=== PATIENT | male | born 1975 | race Caucasian/White ===

== ENCOUNTER → 2018-10-26 | Outpatient (CLI) | payer BC ==
--- NOTE | 2018-10-26 10:31 | CT ---
EXAMINATION TYPE: CT sinus wo con DATE OF EXAM: 10/26/2018 COMPARISON: None HISTORY: Chronic sinusitis CT DLP: 655 mGycm CONTRAST: None The paranasal sinuses are examined in the axial plane at 2 mm thick sections. Reconstructed images i n the coronal plane were obtained. Findings: There is a retention cyst within the inferior posterior right maxillary sinus. Partial septations in the posterior left maxillary sinus. The ethmoid air cells are clear. The sphenoid sinuses are clear . The frontal sinuses are clear. The septum is evaluated. There is septal deviation to the left. The ostiomeatal units are patent. Portion of the mastoid air cells included within the [id number] are clear. IMPRESSIONS: 1. Small retention cyst right maxillary sinus.
[2018-10-26 19:21] LABS: Codfish IgE <0.10 kU/L; Egg White IgE <0.10 kU/L
[2018-10-26 19:23] LABS: Clam IgE <0.10 kU/L; Peanut IgE <0.10 kU/L; Shrimp IgE <0.10 kU/L; Soybean IgE <0.10 kU/L
[2018-10-26 19:24] LABS: Scallop IgE <0.10 kU/L; Walnut IgE (Food) <0.10 kU/L
[2018-10-26 19:26] LABS: Cat Epith & Dander IgE <0.10 kU/L; Dermato. farinae IgE <0.10 kU/L; Dog Dander IgE <0.10 kU/L
[2018-10-26 19:28] LABS: Alternaria alternata IgE <0.10 kU/L; Cockroach IgE <0.10 kU/L; Maple (Box Elder) IgE <0.10 kU/L
[2018-10-26 19:30] LABS: Birch IgE 0.25 kU/L; Elm IgE <0.10 kU/L; Oak IgE <0.10 kU/L; Ragweed,Common IgE <0.10 kU/L
[2018-10-26 19:32] LABS: Red Top (Bentgrass) IgE <0.10 kU/L
== END | disposition home or self-care (01) ==
LOC: RADCTMAIN 07:27
PROVIDERS: ATTEND Internal Medicine Critical Care Medicine
DX: J32.0 Chronic maxillary sinusitis (principal); J34.1 Cyst and mucocele of nose and nasal sinus; J45.909 Unspecified asthma, uncomplicated; R05 Cough
CPT/HCPCS: 70486; 82785; 86003

== ENCOUNTER 2018-12-06 09:44 | Day surgery (SDC) | payer BC ==
[2018-12-01 15:51] VITALS: BMI 28.7
[~2018-12-06 09:44] MED LIST: LACTATED RINGERS 1,000 ML IV SCH
[2018-12-06 10:25] VITALS: RESP 18; TEMP 98
[2018-12-06] MEDS ORDERED: LIDOCAINE 1% 20 ML VIAL (10MG/ML) FOR IV START INTRADERMA ONE (10:38)
[2018-12-06] MEDS ORDERED: ALBUTEROL NEB (CONC) 2.5 MG/0.5 ML INHALATION ONE (10:39)
[2018-12-06] MEDS ORDERED: LIDOCAINE 2% (PF) 20 MG/ML 5 ML VIAL INHALATION ONE (10:39)
[2018-12-06] MEDS ORDERED: LIDOCAINE 2% INJ 20 MG/ML INTRATRACH ONE ×2 (10:55→11:10)
[2018-12-06] MEDS ORDERED: MIDAZOLAM 2 MG/2 ML VIAL ONE (11:02)
[2018-12-06] MEDS ORDERED: PROPOFOL 10 MG/ML 20 ML VIAL IV ONE (11:02)
[2018-12-06] MEDS ORDERED: LIDOCAINE 1% INJ 10MG/ML (20 ML MDV) ONE (11:02)
--- NOTE | 2018-12-06 11:43 | PCN ---
PROCEDURE NOTE PROCEDURE: Bronchoscopy, airway examination, therapeutic lavage, BAL. The BAL took place right middle lobe. OPERATORS: Dr. Nascimento and Dr. Burk. REASON FOR THE PROCEDURE: Cough variant, asthma/persistent cough. POSTOPERATIVE DIAGNOSIS: Cough variant, asthma/persistent cough. There was informed consent. There was universal timeout. The patient's procedure took place in room #1 [facility]. Anesthesia provided unconscious sedation and general anesthesia. After the patient was adequately sedated and being fully monitored, the bronchoscope was inserted inserted through the left nostril. It passed through the left nasopharynx into the oropharynx. Then into the hypopharynx. The hypopharyngeal structures including anterior commissure, true cords, false cords, arytenoids, piriform sinuses, right and left vallecula and epiglottis all appeared relatively normal. After topicalization of the glottic opening, the bronchoscope was pushed through the glottic opening into the trachea. Trachea appeared relatively normal. Trachea loretta was sharp. There was a thorough inspection of both lungs. The right upper lobe and its 3 segments, right middle lobe and its 2 segments, right lower lobe and its 5 segments, the left upper lobe and its 2 segments, the lingula and its 2 segments and the left lower lobe and its 4 segments all had similar findings of diffuse airway erythema and hyperemia. I would grade it as being moderate in severity. There was some mucosal friability. There was also some vascular engorgement. There were some secretions. They were mostly thin. Some appeared to be somewhat more purulent. There was no bleeding. There was no dominant mass or tumor. The bronchoscope was wedged into the right middle lobe. The BAL took place. The patient tolerated the procedure well. Once the BAL was completed, the bronchoscope was withdrawn. There was no immediate complications. MMODL / IJN: [id number] /
[2018-12-06 11:48] VITALS: BP 146/81; PULSE 83
[2018-12-06 20:56] LABS: Appearance,BF Hazy; Color,BF Red; Nucleated Cells, Body Fluid 10 /uL; RBC, Body Fluid 4270 /uL
== END 2018-12-06 12:11 | disposition home or self-care (01) ==
LOC: ORWHC2ENDO 09:44
PROVIDERS: ATTEND Internal Medicine Critical Care Medicine
DX: J45.991 Cough variant asthma (principal); J32.9 Chronic sinusitis, unspecified; Z79.899 Other long term (current) drug therapy
CPT/HCPCS: 94640; 89050; 87252; 87070; 87205; 87116; 87102; 87206; 31624; J2001 ×3; J2250; J2704; 87496; 87498; 87502; 87529; 87634; 87798; 88108; 88305